=== PATIENT | female | born 1950 | race Caucasian/White ===

== ENCOUNTER → 2016-03-23 | Outpatient (REF) | payer MEDICARE, OTHER ==
[2016-03-23 13:34] LABS: BASOPHILS % (AUTO) 1 % (0-2); EOSINOPHILS % (AUTO) 1 % (0-4); LYMPHOCYTES # (AUTO) 0.8 X10^3; MEAN CORPUSCULAR HEMOGLOBIN 31.1 PG (26.0-34.0); MEAN CORPUSCULAR VOLUME 89 FL (80-100); MONOCYTES # (AUTO) 0.3 X10^3; MONOCYTES % (AUTO) 11 % (3-11); NEUTROPHILS # (AUTO) 1.7 X10^3; NEUTROPHILS % (AUTO) 58 % (51-67); PLATELET COUNT 160 10^3uL (150-450); WHITE BLOOD COUNT 2.84 10^3uL (4.0-11.0)
[2016-03-23 13:40] LABS: BILIRUBIN,URINE 1+ (Negative); CLARITY,URINE Clear; COLOR,URINE Yellow; GLUCOSE, URINE (UA) Negative (Negative); LEUKOCYTE ESTERASE ,URINE 1+ (Negative); PH,URINE 5.5 (5.0 - 8.0)
[2016-03-23 13:41] LABS: URINE CENTRIFUGED VOLUME 12 mL
[2016-03-23 13:47] LABS: ALBUMIN 3.8 g/dL (3.4-5.0); ANION GAP 16.9 MEQ/L (3-15); TOTAL PROTEIN 6.7 g/dL (6.4-8.5)
== END ==
LOC: LAB 13:25
PROVIDERS: ATTEND Nurse Practitioner Family
DX: R42 Dizziness and giddiness (principal); R82.99 Other abnormal findings in urine
CPT/HCPCS: 80053; 81003; 81015; 85025; 87088

== ENCOUNTER 2016-04-08 14:30 | Outpatient (RCR) | payer MEDICARE, OTHER ==
--- NOTE | 2016-03-29 09:43 | PT/OT/ST INITIAL EVALUATION ---
Department of Health and Human Services Form Approved Health Care Financing Administration OMB No. [id number] PLAN OF CARE/ASSESSMENT FOR OUTPATIENT REHABILITATION (Complete for Initial Claims Only) 1. LAST NAME Homero FIRST NAME Yane Clemons 2. ACC # [id number] [facility]. [id number] 4. PROVIDER NO. [id number] 5. TYPE: X PT 6. PRIOR THERAPY (Same condition) 2008 7. PRIMARY DX Dizziness 8. SECONDARY DX Frequent falls 9. ONSET DATE Fall of 2015 10. REFERRAL DATE 03/23/2016 11. SOC. DATE/TIME 03/24/2016 14:00 12. PRIOR LEVEL OF FUNCTION; PERTINENT HISTORY (Prior therapy results, reason for referral.) S: The patient was referred to physical therapy by Randi Foley APRN with the diagnosis of dizziness. The patient reports that she has been experiencing some dizziness and lightheadedness over the last couple of months. She notes that it has gotten worse over the last couple of weeks following being sick with the flu. The patient reports having more falls recently. Occupational and social history: She is retired. Overall health rating: She rates her activity level as low; however, she does attend her grandson[employer]roGen[employer] sporting events regularly. Current pain rating: She rates her overall health as fair. Past medical history: The patient has extensive past medical history. 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 The patient had undergone extensive rehab; however, she still has some spasticity at her left lower leg and hip region. The patient does ambulate with a small based quad cane. She demonstrates a step-off gait pattern on the left due to limited dorsiflexion and then at mid stance, she does hyperextend her left knee. The patient has difficulty controlling her left leg and normally when she falls; it is to the left or backwards. The patient's goal for therapy is to improve her balance and be able to walk better. 13. INITIAL ASSESSMENT/SAFETY PRECAUTIONS/MEDICAL COMPLICATIONS (Level of function at start of care. Be specific, use objective measures, list problems.) O: APPEARANCE: The patient is a slender 65-year-old female. She demonstrates slight forward head posture. Left shoulder is slightly elevated and higher than the right. RANGE OF MOTION/FLEXIBILITY: Cervical left rotation mildly limited, left shoulder range of motion limited 20% at end range. Left hip demonstrates hip flexor and IT band tightness. Left ankle dorsiflexion is limited -5 from neutral. STRENGTH: Left shoulder strength abduction and external rotation were 4+ and 4/5 manual muscle test. All other motions at the right shoulder and left were 5/5 manual muscle test. Hip strength flexion right 5/5 manual muscle test, left 4-/5 manual muscle test. Hip abduction right 5/5 manual muscle test, left 3-/5 manual muscle test. Knee extension right 5/5 manual muscle test, left 4+/5 manual muscle test. Knee flexion right 5/5 manual muscle test, left 3+/5 manual muscle test. Ankle dorsiflexion right 5/5 manual muscle test, left 3+/5 manual muscle test. SENSATION: The patient demonstrates slight decrease in sensation at left leg. TODAY'S TREATMENT: Included initial evaluation followed by Tinetti Balance and Gait Assessment at which the patient scored a 13/28, which puts her at a high risk for falls. The patient also demonstrated positive left BPPV with mild nystagmus. Treatment included stretching of her left hip flexor and IT band and instruction on [place] vestibular exercises with the patient seated. 14. INITIAL POC: (Specify procedures, modalities, short and shelter goals) A: The patient presents to physical therapy with mild dizziness and weakness. PROGNOSIS: The patient is motivated to work on general strengthening and help decrease her dizziness. GOALS: 1. The patient to be compliant with home exercise program in 2 weeks. 2. The patient to not demonstrate any dizziness with Hallpike canalith positional maneuvers in 2 weeks. 3. The patient to be able to perform independent side-lying hip abduction in 4 weeks. 4. The patient to demonstrate 6 point improvement in Tinetti Balance Assessment in 6 weeks. 5. The patient to not report any falls over a 4-week period in 6 weeks. PLAN: The patient will be seen 2 times a week over the next 6 weeks. Plan on progressing the patient with balance and vestibular exercises. We will also progress the patient with flexibility and general strengthening activities. 15. FUNCTIONAL LEVEL (End of claim period) 16. PHYSICIAN SIGNATURE ? ON FILE OR ENTER HERE: 17. DATE: I certify the need for these services furnished under this plan of care and if for partial hospitalization. 18. CERTIFICATION FROM THROUGH [facility]
[~2016-04-08 14:30] MED LIST: [UNRECOGNIZED DRUG - REMARK] TOP
== END 2016-04-13 12:00 | disposition home or self-care (01) ==
LOC: PT 14:30
PROVIDERS: ATTEND Nurse Practitioner Family
DX: R42 Dizziness and giddiness (principal)